=== PATIENT | male | born 1965 | race Caucasian/White ===

== ENCOUNTER 2018-05-13 10:22 | Emergency (ER) | payer OTHER, SELFPAY ==
[2018-05-13 10:24] VITALS: BP 129/83; PULSE 78; RESP 18; TEMP 36.6; O2SAT 96; BMI 32.1
--- NOTE | 2018-05-13 10:38 | RAD_ITS ---
STUDY: X-RAY - LEFT HAND, ATTENTION FOURTH FINGER REASON FOR EXAM: Male, 52 years old. Laceration following injury. TECHNIQUE: 3 view(s) of the finger were obtained. COMPARISON: None. FINDINGS: Normal metacarpal head. Normal metacarpophalangeal joint. Normal proximal phalanx. Comminuted nondisplaced fracture involving the mid and distal portion of the middle phalanx of the fourth digit. There is minimal dorsal angulation. Normal distal phalanx. Normal proximal interphalangeal joint. Normal distal interphalangeal joint. Soft tissue laceration. RAD/Finger(s) Min 2 Views IMPRESSION: Condylar nondisplaced fracture of the mid and distal portion of the middle pharynx of the fourth digit with minimal dorsal angulation. Soft tissue laceration. Electronically Signed: Broderick Noriega MD at 11:00 EST Tel [phone], Service support ,
[2018-05-13] MEDS: Diphth,Pertuss(Acell),Tet Vac 0.5 ML Vial IM (11:34)
--- NOTE | 2018-05-13 11:59 | NURSING ---
FAXED FACESHEET TO [facility]
[2018-05-13] MEDS: Cefazolin 2 GM in 0.9% Normal Saline 100 ML IV (12:49)
[2018-05-13 13:48] VITALS: BP 154/89; PULSE 76; RESP 17; O2SAT 94
--- NOTE | 2018-05-13 15:19 | ED.VISSUMM ---
- ER Visit Summary Date of Service: 05/13/18 Chief Complaint: Hand injury History of Present Illness: The patient is a 52 M who was at work today when he sustained a crush injury. This resulted in injury to the left ring finger. Unknown last tetanus. He is right-hand dominant Physical Examination: Afebrile vital signs are stable Gen: Well-nourished well-developed Head: Normocephalic atraumatic Eyes: Perrl EOMI ENT: TMs clear no rhinorrhea moist mucous membranes Neck: Supple no lymphadenopathy no JVD nontender CVS: Regular rate rhythm no murmurs normal S1-S2 Respiratory: No distress clear to auscultation bilaterally chest nontender Abdomen: Soft nontender nondistended normal bowel sounds no masses Back: Nontender Extremity: The left ring finger shows laceration over the dorsal surface along the middle phalanx extending to the proximal distal phalanx. Through this wound one can visualize the ends of the extensor tendon which appears lacerated. There is swelling and crushed tissue proximal. He does have sensation and good capillary refill distally. Length of laceration is approximately 3 cm Skin: Normal color no rash Neuro: alert orientated ?3 CN II-XII intact normal strength sensation reflexes gait cerebellar Psych: Normal affect normal mood Test Results: Hand films demonstrated a comminuted intra-articular middle phalanx fracture with displacement Emergency Department Course and Treatment: Tetanus was updated the patient received Ancef. Patient was placed in wet to dry dressing and a AlumaFoam splint in extension. I spoke with [facility] trauma Dr. Grayson who is accepted the patient to the emergency room at [facility]. Patient wishes to go by private vehicle. He has declined pain medication. Impression: 1. Open left ring finger middle phalanx fracture 2. Left ring finger extensor tendon laceration 3. Tetanus update This note was generated with [employer] dictation software. It may contain incorrect words, spelling, and punctuation that were not noted in review of the chart prior to signing ED Disposition - Plan for ED Patient: Disposition: [facility] Chief Complaint: Upper Extremity Injury Referrals: Javon Herman MD [Primary Care Provider] -
--- NOTE | 2018-05-13 15:22 | ED.DCSUM_ITS ---
- ER Visit Summary Date of Service: 05/13/18 Chief Complaint: Hand injury History of Present Illness: The patient is a 52 M who was at work today when he sustained a crush injury. This resulted in injury to the left ring finger. Unknown last tetanus. He is right-hand dominant Physical Examination: Afebrile vital signs are stable Gen: Well-nourished well-developed Head: Normocephalic atraumatic Eyes: Perrl EOMI ENT: TMs clear no rhinorrhea moist mucous membranes Neck: Supple no lymphadenopathy no JVD nontender CVS: Regular rate rhythm no murmurs normal S1-S2 Respiratory: No distress clear to auscultation bilaterally chest nontender Abdomen: Soft nontender nondistended normal bowel sounds no masses Back: Nontender Extremity: The left ring finger shows laceration over the dorsal surface along the middle phalanx extending to the proximal distal phalanx. Through this wound one can visualize the ends of the extensor tendon which appears lacerated. There is swelling and crushed tissue proximal. He does have sensation and good capillary refill distally. Length of laceration is approximately 3 cm Skin: Normal color no rash Neuro: alert orientated ?3 CN II-XII intact normal strength sensation reflexes gait cerebellar Psych: Normal affect normal mood Test Results: Hand films demonstrated a comminuted intra-articular middle phalanx fracture with displacement Emergency Department Course and Treatment: Tetanus was updated the patient received Ancef. Patient was placed in wet to dry dressing and a AlumaFoam splint in extension. I spoke with [facility] trauma Dr. Grayson who is accepted the patient to the emergency room at [facility]. Patient wishes to go by private vehicle. He has declined pain medication. Impression: 1. Open left ring finger middle phalanx fracture 2. Left ring finger extensor tendon laceration 3. Tetanus update This note was generated with [employer] dictation software. It may contain incorrect words, spelling, and punctuation that were not noted in review of the chart prior to signing ED Disposition - Plan for ED Patient: Disposition: [facility] Chief Complaint: Upper Extremity Injury Referrals: Javon Herman MD [Primary Care Provider] -
== END 2018-05-13 13:50 | disposition short-term general hospital (02) ==
PROVIDERS: Emergency Provider Emergency Medicine; Family Provider Family Medicine; PCP Family Medicine
DX: S62.655B Nondisplaced fracture of middle phalanx of left ring finger, initial encounter for open fracture (principal); S66.325A Laceration of extensor muscle, fascia and tendon of left ring finger at wrist and hand level, initial encounter; W23.0XXA Caught, crushed, jammed, or pinched between moving objects, initial encounter; Y93.9 Activity, unspecified; Y92.89 Other specified places as the place of occurrence of the external cause; Y99.0 Civilian activity done for income or pay; Z23 Encounter for immunization; Z79.899 Other long term (current) drug therapy; Z87.442 Personal history of urinary calculi
CPT/HCPCS: 73140; 90715; 96374; 99285; A4216